=== PATIENT | female | born 1980 | race African-American/Black ===

== ENCOUNTER 2016-05-06 14:08 | Emergency (ER) | payer MEDICAID, OTHER ==
[2016-05-06 14:28] VITALS: BP 110/75
--- NOTE | 2016-05-06 14:59 | EDM.PDOC ---
ED HISTORY OF PRESENT ILLNESS - General Chief Complaint: Respiratory Problem Stated Complaint: SOB Time Seen by Provider: 05/06/16 14:42 Source of Information: Reports: Patient History Limitations: Reports: No limitations - History of Present Illness INITIAL COMMENTS - FREE TEXT/NARRATIVE: Patient presents for evaluation and treatment of cough, nasal congestion and shortness of breath. She reports her symptoms have been going on for the last 3 days. She straight states she's tried [id number] cold medications for her symptoms. Current symptoms include a productive cough, nasal congestion and shortness of breath. She also reports a hoarse voice. She denies any fevers, chills, nausea, vomiting, abdominal pain, earaches or sore throat. Patient describes the shortness of breath if she like her lungs are "dirty". Patient reports some itching in between her ears and throat. She reports she is coughing up a yellowish red tinged sputum. Patient reports that she did not get her flu shot this year. She recently traveled to [place] about 3 weeks ago. - Related Data Allergies/ADRs: Allergies Allergy/AdvReac Type Severity Reaction Status Date / Time cefuroxime axetil Allergy Itching Verified 03/28/16 23:31 [From Ceftin] Home Meds: Home Meds Codeine/guaiFENesin [Robitussin AC] 120 ml PO Q6HR PRN #120 ml 05/06/16 [Rx] Past Medical History - Past Health History Medical/Surgical History: Denies Medical/Surgical History Other OB/BYN History: ovarian cyst. tubes tied Psychiatric History: Reports: Depression Dermatologic History: Reports: Other (see below) (Recurrent infections in both axilla is compatible with hidradenitis suppurativa.) - Past Surgical History Female Surgical History: Reports: Tubal ligation Other Musculoskeletal Surgeries/Procedures:: back surgery Social & Family History - Family History Family Medical History: Noncontributory - Tobacco Use Smoking Status *Q: Current Every Day Smoker Years of Tobacco use: 10 Packs/Tins Daily: 0.5 Used Tobacco, but Quit: No Month Tobacco Last Used: november Second Hand Smoke Exposure: Yes - Caffeine Use Caffeine Use: Reports: Coffee, Soda, Tea - Alcohol Use Days Per Week of Alcohol Use: 1 Number of Drinks Per Day: 2 Total Drinks Per Week: 2 - Recreational Drug Use Recreational Drug Use: No - Living Situation & Occupation Occupation: employed ED ROS GENERAL - Review of Systems Review Of Systems: See Below Constitutional: Denies: fever, chills HEENT: Reports: Other (nasal congestion). Denies: Ear pain, Throat pain Respiratory: Reports: Shortness of Breath, Cough GI/Abdominal: Denies: Nausea, Vomiting ED EXAM, GENERAL - Physical Exam Exam: See Below Exam Limited By: No limitations General Appearance: alert, WD/WN, no apparent distress, obese Ears: normal external exam, normal canal, hearing grossly normal, normal TMs Throat/Mouth: Normal inspection, Normal lips, Normal voice, No airway compromise Respiratory/Chest: no respiratory distress, lungs clear, normal breath sounds Cardiovascular: normal peripheral pulses, regular rate, rhythm, no murmur Neurological: alert, oriented, normal cognition Psychiatric: normal affect, normal mood Skin Exam: Warm, Dry, Normal color Course - Vital Signs Last Recorded V/S: Last Vital Signs Temp 36.4 C 05/06/16 14:26 Pulse 90 05/06/16 14:26 Resp 20 05/06/16 14:26 BP 110/75 05/06/16 14:26 Pulse Ox 100 05/06/16 14:26 - Re-Assessments/Exams Free Text/Narrative Re-Assessment/Exam: 05/06/16 16:52 Influenza returned and is negative. Likely a viral upper respiratory infection. Will discharge her at this time. Discharge instructions as documented. Departure - Departure Time of Disposition: 16:53 Disposition: Home, Self-Care 01 Condition: fair Clinical Impression: Viral URI Prescriptions: Codeine/guaiFENesin [Robitussin AC] 120 ml PO Q6HR PRN #120 ml PRN Reason: Cough Instructions: Upper Respiratory Infection, Adult, [id number] Referrals: Akosua Oneill DO [Primary Care Provider] - Forms: ED Department Discharge Additional Instructions: Take the cough syrup with codeine 5-10 mg every 6 hours as needed for cough. No driving operating machinery within 12 hours of taking the cough syrup with codeine. Codeine can be habit-forming, I recommend you take as little as needed to control your symptoms. Rest and drink plenty of fluids. [id number] Tylenol or motrin as needed pain and symptom relief. Follow-up with your primary care provider if her symptoms do not improve in 2 weeks. Expect to feel ill the next 7-10 days, the first 3 days will be the worse. Please return to the ER your symptoms change or worsen.
== END 2016-05-06 17:10 | disposition home or self-care (01) ==
LOC: JD.ED 14:08
DX: J06.9 Acute upper respiratory infection, unspecified (principal); B97.89 Other viral agents as the cause of diseases classified elsewhere; F32.9 Major depressive disorder, single episode, unspecified; F17.210 Nicotine dependence, cigarettes, uncomplicated; Z98.51 Tubal ligation status; Z88.8 Allergy status to other drugs, medicaments and biological substances
CPT/HCPCS: 87804; 99283; 99285

== ENCOUNTER 2017-03-14 19:49 | Emergency (ER) | payer MEDICAID ==
[2017-03-14 20:01] VITALS: BP 127/84
[2017-03-14] MEDS ORDERED: HYDROmorphone 1 MG/ML Syringe IVPUSH ONE (20:27)
[2017-03-14] MEDS ORDERED: Ondansetron 4 MG/2 ML SDV IVPUSH ONE (20:27)
--- NOTE | 2017-03-14 20:29 | EDM.PDOC ---
ED HPI GENERAL MEDICAL PROBLEM - General Chief Complaint: Abdominal Pain Stated Complaint: ABDOMINAL AND BACK PAIN Time Seen by Provider: 03/14/17 20:15 Source of Information: Reports: Patient History Limitations: Reports: No Limitations - History of Present Illness INITIAL COMMENTS - FREE TEXT/NARRATIVE: The patient states that she has had right neck and head pain, along with nausea , coming and going over the past 2 weeks. It tends to be worse in the p.m. She then developed mid-back pain around 18:45 this evening, then bilateral abdominal tightness and cramping around 19:00. This concerns the patient that she might be , because she underwent a bilateral tubal ligation 5 years ago. Her LMP was about 2 weeks ago. Additionally, her mid-back pain is in the vicinity of where she had a shaving of a thoracic bone spur in 2013. She has not had any fever. No recent constipation or diarrhea. No recent urinary symptoms or gross hematuria. The patient's PCP is Miguelina Nettles, who has not been made aware of the patient 's symptoms. Abdomen Pain Score (Numeric/FACES): 10 - Related Data Allergies Allergy/AdvReac Type Severity Reaction Status Date / Time cefuroxime axetil Allergy Itching Verified 03/14/17 20:01 [From Ceftin] Home Meds: Home Meds Ibuprofen 1 tab PO Q8H PRN #30 tablet 03/14/17 [Rx] Past Medical History DIRECTOR OUTPATIENT SERVICES History: Reports: , Other (See Below) (Ovarian cyst) Psychiatric History: Reports: Anxiety (untreated), Depression (untreated) - Past Surgical History Female Surgical History: Reports: Tubal Ligation (around 2012) Neurological Surgical History: Reports: Other (See Below) (Shaving of a thoracic bone spur 2013) Social & Family History - Family History Family Medical History: Noncontributory - Tobacco Use Smoking Status *Q: Current Every Day Smoker Years of Tobacco use: 14 Packs/Tins Daily: 0.5 Second Hand Smoke Exposure: Yes - Caffeine Use Caffeine Use: Reports: Coffee, Soda - Alcohol Use Alcohol Use History: Yes Days Per Week of Alcohol Use: 1 Number of Drinks Per Day: 2 Total Drinks Per Week: 2 - Recreational Drug Use Recreational Drug Use: Yes Drug Use in Last 12 Months: Yes Recreational Drug Type: Reports: Marijuana/Hashish (last in January 2017) - Living Situation & Occupation Living situation: Reports: , with Significant Other (Boyfriend), with Family (Son) Occupation: Employed ([employer]) ED ROS GENERAL - Review of Systems Review Of Systems: ROS reveals no pertinent complaints other than HPI. ED EXAM, GENERAL - Physical Exam Exam: See Below Exam Limited By: No Limitations General Appearance: Alert, WD/WN, No Apparent Distress Eye Exam: Bilateral Eye: Normal Inspection Ears: Normal External Exam, Hearing Grossly Normal Nose: Normal Inspection, No Blood Throat/Mouth: Normal Inspection, Normal Lips, Normal Voice, No Airway Compromise Head: Atraumatic, Normocephalic Neck: Normal Inspection, Full Range of Motion Respiratory/Chest: No Respiratory Distress, Lungs Clear, Normal Breath Sounds, No Accessory Muscle Use Cardiovascular: Normal Peripheral Pulses, Regular Rate, Rhythm, No Gallop, No JVD, No Murmur, No Rub Peripheral Pulses: 4+: Radial (L), Radial (R) GI/Abdominal: Normal Bowel Sounds, Soft, No Organomegaly, No Distention, No Abnormal Bruit, No Mass, Tender (Generalized, with increased tenderness to the left lower quadrant) (Female) Exam: Deferred Rectal (Female) Exam: Deferred Back Exam: Normal Inspection, Full Range of Motion. No: CVA Tenderness (L), CVA Tenderness (R) Extremities: Normal Inspection, Normal Range of Motion, No Pedal Edema, Normal Capillary Refill Neurological: Alert, Oriented, Normal Cognition, No Motor/Sensory Deficits Psychiatric: Normal Affect Skin Exam: Warm, Dry, Intact, Normal Color, No Rash Course - Vital Signs Last Recorded V/S: Last Vital Signs Temp 36.4 C 03/14/17 19:57 Pulse 92 03/14/17 19:57 Resp 18 03/14/17 19:57 BP 127/84 03/14/17 19:57 Pulse Ox 99 03/14/17 19:57 - Orders/Labs/Meds Orders: Active Orders 24 hr Category Date Time Status Abdomen Pelvis w Cont [CT] Stat Exams 03/14/17 20:27 Taken Sodium Chloride 0.9% [Normal Saline] 1,000 ml Med 03/14/17 20:30 Active IV ASDIRECTED Medication Orders Sodium Chloride (Normal Saline) 1,000 mls @ 150 mls/hr IV ASDIRECTED ZAKIYA Last Admin: 03/14/17 20:45 Dose: 150 mls/hr Labs: Laboratory Tests 03/14/17 03/14/17 03/14/17 Range/Units 20:45 20:45 20:45 WBC 7.70 (3.98-10.04) K/mm3 RBC 4.48 (3.98-5.22) M/mm3 Hgb 12.6 (11.2-15.7) gm/L Hct 36.9 (34.1-44.9) % MCV 82.4 (79.4-94.8) fl MCH 28.1 (25.6-32.2) pg MCHC 34.1 (32.2-35.5) g/dl RDW Std Deviation 44.1 (36.4-46.3) fL Plt Count 388 H (182-369) K/mm3 MPV 10.2 (9.4-12.3) fl Neutrophils % (Manual) 56 (40-60) % Band Neutrophils % 0 (0-10) % Lymphocytes % (Manual) 26 (20-40) % Atypical Lymphs % 0 % Monocytes % (Manual) 16 H (2-10) % Eosinophils % (Manual) 2 (0.7-5.8) % Basophils % (Manual) 0 L (0.1-1.2) Platelet Estimate Adequate Plt Morphology Comment Normal RBC Morph Comment Normal Sodium 143 (136-145) mEq/L Potassium 3.8 (3.5-5.1) mEq/L Chloride 107 (98-107) mEq/L Carbon Dioxide 25 (21-32) mEq/L Anion Gap 14.8 (5-15) BUN 11 (7-18) mg/dL Creatinine 0.7 (0.55-1.02) mg/dL Est Cr Clr Drug Dosing 118.35 mL/min Estimated GFR (MDRD) > 60 (>60) mL/min BUN/Creatinine Ratio 15.7 (14-18) Glucose 84 (74-106) mg/dL Calcium 9.4 (8.5-10.1) mg/dL Total Bilirubin 0.2 (0.2-1.0) mg/dL AST 14 L (15-37) U/L ALT 18 (14-59) U/L Alkaline Phosphatase 62 (46-116) U/L Total Protein 8.4 H (6.4-8.2) g/dl Albumin 4.1 (3.4-5.0) g/dl Globulin 4.3 gm/dL Albumin/Globulin Ratio 1.0 (1-2) Lipase 93 (73-393) U/L Urine Color (Yellow) Urine Appearance (Clear) Urine pH (5.0-8.0) Ur Specific [place] (1.005-1.030) Urine Protein (Negative) Urine Glucose (UA) (Negative) Urine Ketones (Negative) Urine Occult Blood (Negative) Urine Nitrite (Negative) Urine Bilirubin (Negative) Urine Urobilinogen (0.2-1.0) Ur Leukocyte Esterase (Negative) Urine RBC (0-5) /hpf Urine WBC (0-5) /hpf Ur Epithelial Cells (0-5) /hpf Urine Bacteria (FEW) /hpf Urine Mucus (FEW) /hpf Urine HCG, Qual Negative (NEGATIVE) 03/14/17 Range/Units 20:45 WBC (3.98-10.04) K/mm3 RBC (3.98-5.22) M/mm3 Hgb (11.2-15.7) gm/L Hct (34.1-44.9) % MCV (79.4-94.8) fl MCH (25.6-32.2) pg MCHC (32.2-35.5) g/dl RDW Std Deviation (36.4-46.3) fL Plt Count (182-369) K/mm3 MPV (9.4-12.3) fl Neutrophils % (Manual) (40-60) % Band Neutrophils % (0-10) % Lymphocytes % (Manual) (20-40) % Atypical Lymphs % % Monocytes % (Manual) (2-10) % Eosinophils % (Manual) (0.7-5.8) % Basophils % (Manual) (0.1-1.2) Platelet Estimate Plt Morphology Comment RBC Morph Comment Sodium (136-145) mEq/L Potassium (3.5-5.1) mEq/L Chloride (98-107) mEq/L Carbon Dioxide (21-32) mEq/L Anion Gap (5-15) BUN (7-18) mg/dL Creatinine (0.55-1.02) mg/dL Est Cr Clr Drug Dosing mL/min Estimated GFR (MDRD) (>60) mL/min BUN/Creatinine Ratio (14-18) Glucose (74-106) mg/dL Calcium (8.5-10.1) mg/dL Total Bilirubin (0.2-1.0) mg/dL AST (15-37) U/L ALT (14-59) U/L Alkaline Phosphatase (46-116) U/L Total Protein (6.4-8.2) g/dl Albumin (3.4-5.0) g/dl Globulin gm/dL Albumin/Globulin Ratio (1-2) Lipase (73-393) U/L Urine Color Yellow (Yellow) Urine Appearance Clear (Clear) Urine pH 6.0 (5.0-8.0) Ur Specific [place] 1.025 (1.005-1.030) Urine Protein Negative (Negative) Urine Glucose (UA) Negative (Negative) Urine Ketones Trace H (Negative) Urine Occult Blood Negative (Negative) Urine Nitrite Negative (Negative) Urine Bilirubin Negative (Negative) Urine Urobilinogen 0.2 (0.2-1.0) Ur Leukocyte Esterase Negative (Negative) Urine RBC 0-5 (0-5) /hpf Urine WBC 0-5 (0-5) /hpf Ur Epithelial Cells 0-5 (0-5) /hpf Urine Bacteria Rare (FEW) /hpf Urine Mucus Not seen (FEW) /hpf Urine HCG, Qual (NEGATIVE) Meds: Medications Generic Name Dose Route Start Last Admin Trade Name Freq PRN Reason Stop Dose Admin Sodium Chloride 1,000 mls @ 150 mls/hr 03/14/17 20:30 03/14/17 20:45 Normal Saline IV 150 mls/hr ASDIRECTED ZAKIYA Administration Discontinued Medications Generic Name Dose Route Start Last Admin Trade Name Freq PRN Reason Stop Dose Admin Diatrizoate Meglum/Diatrizoate Sod 90 ml 03/14/17 22:20 03/14/17 22:29 Gastrografin 37% PO 03/14/17 22:21 90 ml ONETIME ONE Administration Hydromorphone HCl 1 mg 03/14/17 20:27 03/14/17 20:45 Dilaudid IVPUSH 03/14/17 20:28 1 mg ONETIME ONE Administration Iopamidol 125 ml 03/14/17 22:20 03/14/17 22:30 Isovue-300 (61%) IVPUSH 03/14/17 22:21 125 ml ONETIME ONE Administration Ondansetron HCl 4 mg 03/14/17 20:27 03/14/17 20:45 Zofran IVPUSH 03/14/17 20:28 4 mg ONETIME ONE Administration - Re-Assessments/Exams Free Text/Narrative Re-Assessment/Exam: 03/14/17 20:29 The patient has numerous symptoms, including right neck and head pain, nausea, mid back pain, and generalized abdominal pain and tenderness. The etiology of the symptoms is unclear. I have ordered blood work, urinalysis, and a CT scan of the abdomen and pelvis with oral and IV contrast. 03/14/17 23:03 CT of the abdomen and pelvis with oral and IV contrast is read by [facility] as "No acute findings." 03/14/17 23:17 Test results discussed with the patient and her boyfriend. Today's workup is unremarkable. Clinically, I suspect that the patient is suffering from a left ovarian cyst, however, the CT scan does not show any blood in the pelvis, therefore I am not worried about a ruptured ovarian cyst. I am recommending treatment with ibuprofen. I am requesting that she follow-up with her PCP, Miguelina Nettles, who may want to order an outpatient ultrasound to confirm an ovarian cyst. The patient states that she has no money, and requests that I prescribe the ibuprofen. I will e-prescribe a prescription to the [facility]. Departure - Departure Time of Disposition: 23:17 Disposition: Home, Self-Care 01 Condition: Fair Clinical Impression: Abdominal pain of unknown etiology - Discharge Information Referrals: Magda Nettles, INDEX EDITOR [Primary Care Provider] - Forms: ED Department Discharge Additional Instructions: You were seen in the emergency room for 2 weeks of intermittent right neck and head pain and nausea, then mid back pain and lower abdominal cramping tonight. Workup in the ER included blood work, a urinalysis, a urine test, and a CT scan of your abdomen and pelvis. Your entire workup was unremarkable, and does not explain the cause of your symptoms. Based on your history and physical examination, you are MOST LIKELY suffering from an ovarian cyst. You have been started on the pain medicine ibuprofen. A prescription for this has been sent to the [facility], [address] [facility]. Take one tablet every 8 hours, with food, as needed for pain. Follow-up with your PCP, Miguelina Nettles, for further evaluation that MAY include an ultrasound of your ovaries. If any other problems, please do not hesitate to return to the ER. - My Orders Last 24 Hours: My Active Orders 03/14/17 20:27 Abdomen Pelvis w Cont [CT] Stat 03/14/17 20:30 Sodium Chloride 0.9% [Normal Saline] 1,000 ml IV ASDIRECTED - Assessment/Plan Last 24 Hours: My Active Orders 03/14/17 20:27 Abdomen Pelvis w Cont [CT] Stat 03/14/17 20:30 Sodium Chloride 0.9% [Normal Saline] 1,000 ml IV ASDIRECTED
[2017-03-14] MEDS ORDERED: Sodium Chloride 0.9% 1,000 ML IV SCH (20:30)
[2017-03-14] MEDS ORDERED: Diatrizoate Meglumine/Diatrizoate Sodium 37% 120 ML Bottle PO ONE (22:20)
[2017-03-14] MEDS ORDERED: Iopamidol 612 MG/ML 150 ML Bottle IVPUSH ONE (22:20)
[2017-03-14] MEDS ORDERED: Ibuprofen 600 MG Tab PO ONE (23:18)
--- NOTE | 2017-03-15 08:28 | CT ---
CT abdomen and pelvis Technique: Multiple axial sections were obtained from above the dome of the diaphragm inferiorly through the pubic symphysis. Intravenous and oral contrast was utilized. Delayed images were obtained through the bladder. Comparison: No prior abdominal imaging. Findings: Visualized lung bases show nothing acute. Liver shows no focal parenchymal abnormality. Gallbladder contains no calcified gallstones. Spleen appears within normal limits. Adrenal glands show no nodule. Pancreas is within normal limits. Two cysts are seen within the left kidney. Larger cyst within the left kidney measures 2.8 cm and smaller cyst measures 7 mm. Kidneys are otherwise unremarkable. Aorta shows no aneurysmal dilatation. No retroperitoneal adenopathy or mesenteric abnormalities are seen. No pelvic mass or adenopathy is identified. Appendix is seen which appears normal. Delayed images show contrast within the distal ureters and within the bladder. No inflammatory change or free fluid is seen within the abdomen or pelvis. Incidental note of fat-containing umbilical hernia. Bone window settings were reviewed which appear within normal limits for the patient's age. Impression: 1. Incidental fat-containing umbilical hernia. Two left-sided renal cysts. 2. Nothing acute is identified on CT study of the abdomen and pelvis. Diagnostic code #2 I agree with preliminary report issued by [email or web address] ([facility] preliminary report dictated on 03/14/17, 11:56 PM Central Time)
== END 2017-03-14 23:30 | disposition home or self-care (01) ==
LOC: JD.ED 19:49
DX: R10.32 Left lower quadrant pain (principal); F17.210 Nicotine dependence, cigarettes, uncomplicated; Z88.8 Allergy status to other drugs, medicaments and biological substances
CPT/HCPCS: 36415; 74177; 80053; 81001; 81025; 83690; 85025; 96361; 96374; 96375; 99284; A9270; J1170; J2405; J7040; Q9963; Q9967